=== PATIENT | female | born 1935 | race American Indian/Alaskan Native ===

== ENCOUNTER 2017-08-25 10:03 | Outpatient (CLI) | payer MEDICARE ==
--- NOTE | 2017-08-25 14:34 | Ultrasound Report ---
ULTRASOUND RENAL BILATERAL HISTORY: Kidney transplant status. TECHNIQUE: transabdominal ultrasound with color Doppler interrogation. FINDINGS: The [place] kidneys are not clearly identified and are presumably severely atrophic. A renal transplant is visualized in the left side of the pelvis which measures 12.1 x 6.5 x 5.4 cm. The transplant kidney appears normal size, contour and echotexture. There is minimal urinary stasis in the right renal pelvis but no evidence for hydronephrosis. No cystic disease, mass or perinephric fluid collection. The bladder is partially empty but unremarkable. IMPRESSION: Unremarkable appearance of the left pelvic transplant kidney.
--- NOTE | 2017-08-29 12:25 | PET Report ---
PET/CT:08/25/17 10:03:00 CLINICAL: Breast cancer restaging. RADIOPHARMACEUTICAL: 14.55mCi F18-FDG. COMPARISON: None. TECHNIQUE- Following intravenous injection of F-18 FDG and an approximately 60 minute uptake period, CT and PET images from the mid skull to the upper thighs were acquired with the patient in the fasted state. No contrast was administered. The CT protocol used for this PET CT study is designed for attenuation correction and anatomic localization of PET abnormalities. This roofing contractor CT is not desired to produce and cannot replace, [id number] diagnostic CT scans with specific imaging protocols for different body parts and indications. Plasma glucose at the time of this test: 99g/dl. The standardized uptake values (SUV) are normalized to patient body weight and indicate the highest activity concentration (SUV max) in a given disease site. FINDINGS: Brain--Physiologic FDG uptake in the visualized regions of the brain. Neck--Physiologic FDG uptake in mucosal structures.. Chest--Physiologic FDG uptake in mediastinal blood pool and myocardium. Lungs--No abnormal uptake. No pulmonary nodule or mass. Pleura/pericardium--No abnormal uptake. Thoracic nodes--No abnormal uptake. Hepatobiliary--No abnormal uptake. Liver background SUV mean, as a reference for comparing FDG studies, is 3.1 . No liver mass. Status post cholecystectomy. Spleen--No abnormal uptake. Pancreas--No abnormal uptake. Adrenal Glands--No abnormal uptake. Kidneys/Ureters/Bladder--No abnormal uptake. A normal appearing transplant kidney in the left pelvis and an atrophic left [place] kidney. No [place] right kidney is identified. Abdominopelvic Nodes--No abnormal uptake. Bowel/Peritoneum/Mesentery--No abnormal uptake. Pelvic organs--No abnormal uptake. Bones/Soft Tissues--Focal FDG uptake in the subcutaneous soft tissues of the medial distal left thigh with SUV 7.5. No soft tissue mass or skin lesion is identified on CT. Other findings: Status post right mastectomy. IMPRESSION- 1. A single focus of abnormal FDG uptake in the subcutaneous soft tissues of the left medial distal left thigh. In the absence of a visible soft tissue mass or skin lesion, I suspect this is benign uptake that is possibly related to a subcutaneous inflammatory lesion that is not visible on CT. Recommend clinical correlation and followup with CTPET in six months if no other explanation is identified for this activity. 2. No evidence of pulmonary, hepatic, gaby or skeletal metastasis. 3. Left transplant kidney.
== END 2017-08-25 10:04 | disposition home or self-care (01) ==
LOC: US 10:03
PROVIDERS: ATTEND Internal Medicine Hematology & Oncology
DX: C50.911 Malignant neoplasm of unspecified site of right female breast (principal); R63.4 Abnormal weight loss; N19 Unspecified kidney failure; Z94.0 Kidney transplant status; Z90.49 Acquired absence of other specified parts of digestive tract
CPT/HCPCS: 76770; 78815; 82962; A9552

== ENCOUNTER 2018-10-30 09:43 | Emergency (ER) | payer MEDICARE ==
[2018-10-30] MEDS ORDERED: ASPIRIN PO ONE (11:06)
[2018-10-30 11:28] LABS: Basophils # (Auto) 0.1 K/mm3 (0.0-0.1); Basophils % (Auto) 1.1 % (0.0-1.8); Eosinophils # (Auto) 0.1 K/mm3 (0.0-0.4); Eosinophils % (Auto) 1.9 % (0.0-4.3); Hematocrit 36.9 % (30.3-42.9); Hemoglobin 12.7 gm/dl (10.1-14.3); Lymphocytes # (Auto) 1.1 K/mm3 (1.2-5.4); Lymphocytes % (Auto) 23.9 % (13.4-35.0); Mean Corpuscular HGB Conc 35 % (30-34); Mean Corpuscular Volume 90 fl (79-97); Monocytes # (Auto) 0.5 K/mm3 (0.0-0.8); Monocytes % (Auto) 10.4 % (0.0-7.3); Platelet Count 256 K/mm3 (140-440); Red Cell Distribution Width 13.4 % (13.2-15.2)
[2018-10-30 11:46] LABS: BUN/Creatinine Ratio 25; Blood Urea Nitrogen 20 mg/dL (7-17); Calcium 9.7 mg/dL (8.4-10.2); Hemolysis Index 19
[2018-10-30] MEDS ORDERED: CARAFATE PO ONE (13:00)
[2018-10-30] MEDS ORDERED: PROTONIX IV ONE (13:00)
[2018-10-30] MEDS ORDERED: LIDOCAINE VISCOUS 2% PO ONE (13:01)
--- NOTE | 2018-10-30 13:21 | Emergency Department Report ---
ED General Adult HPI - General Chief complaint: Chest Pain Stated complaint: FATIQUE Time Seen by Provider: 10/30/18 12:31 Source: patient Mode of arrival: Ambulatory Limitations: No Limitations - History of Present Illness Initial comments: Patient presents to the emergency department with a chief complaint of upper abdominal pain that radiates into both of her shoulder blades. Patient states this pain has been present for the last couple of months and has seen multiple doctors for these symptoms. Patient states she is here today to find out what's wrong. Patient denies any chest pain, shortness breath, or headache. -: unknown Location: abdomen Radiation: back Severity scale (0 -10): 7 Quality: sharp Consistency: intermittent Improves with: none Worsens with: none Associated Symptoms: denies other symptoms Treatments Prior to Arrival: none - Related Data Previous Rx's Medication Instructions Recorded Last Taken Type Acetaminophen/Codeine [Tylenol 1 tab PO QHS PRN #10 tab 12/03/16 Unknown Rx /Codeine # 3 tab] predniSONE [Deltasone] 10 mg PO QDAY #5 tab 10/03/17 Unknown Rx traMADol [Ultram] 50 mg PO Q6HR PRN #20 tablet 01/27/18 Unknown Rx ALBUTEROL Inhaler (OR & NICU) 2 puff IH QID PRN #1 inhalation 03/15/18 Unknown Rx [ProAir HFA Inhaler] Azithromycin [Zithromax Z-JAYLEEN] 250 mg PO DAILY #6 tablet 03/15/18 Unknown Rx Sulfamethoxazole/Trimethoprim 1 each PO BID #14 tablet 03/15/18 Unknown Rx [Bactrim DS TAB] Magnesium Citrate [Citrate of 300 ml PO NOW #1 bottle 10/30/18 Unknown Rx Magnesia] cephALEXin [Keflex] 500 mg PO Q6HR #28 capsule 10/30/18 Unknown Rx Allergies Allergy/AdvReac Type Severity Reaction Status Date / Time azithromycin Allergy Anaphylaxis Verified 03/15/18 20:21 contr Allergy Unknown Uncoded 01/27/18 11:58 contrast dye AdvReac Unknown Uncoded 01/27/18 11:58 ED Review of Systems ROS: Stated complaint: FATIQUE Other details as noted in HPI Comment: All other systems reviewed and negative Constitutional: denies: chills, fever Eyes: denies: eye pain, eye discharge, vision change ENT: denies: ear pain, throat pain Respiratory: denies: cough, shortness of breath, wheezing Cardiovascular: denies: chest pain, palpitations Endocrine: no symptoms reported Gastrointestinal: denies: abdominal pain, nausea, diarrhea Genitourinary: denies: urgency, dysuria, discharge Musculoskeletal: denies: back pain, joint swelling, arthralgia Skin: denies: rash, lesions Neurological: denies: headache, weakness, paresthesias Psychiatric: denies: anxiety, depression Hematological/Lymphatic: denies: easy bleeding, easy bruising ED Past Medical Hx - Past Medical History Hx Hypertension: Yes Additional medical history: Aneurysm - Surgical History Hx Coronary Stent: Yes Hx Cholecystectomy: Yes Hx Appendectomy: Yes Additional Surgical History: R masectomy, L. kidney transplant, L shoulder - Social History Smoking Status: Never Smoker Substance Use Type: None - Medications Home Medications: Home Medications Medication Instructions Recorded Confirmed Last Taken Type Acetaminophen/Codeine [Tylenol 1 tab PO QHS PRN #10 tab 12/03/16 Unknown Rx /Codeine # 3 tab] predniSONE [Deltasone] 10 mg PO QDAY #5 tab 10/03/17 Unknown Rx traMADol [Ultram] 50 mg PO Q6HR PRN #20 tablet 01/27/18 Unknown Rx ALBUTEROL Inhaler (OR & NICU) 2 puff IH QID PRN #1 inhalation 03/15/18 Unknown Rx [ProAir HFA Inhaler] Azithromycin [Zithromax Z-JAYLEEN] 250 mg PO DAILY #6 tablet 03/15/18 Unknown Rx Sulfamethoxazole/Trimethoprim 1 each PO BID #14 tablet 03/15/18 Unknown Rx [Bactrim DS TAB] Magnesium Citrate [Citrate of 300 ml PO NOW #1 bottle 10/30/18 Unknown Rx Magnesia] cephALEXin [Keflex] 500 mg PO Q6HR #28 capsule 10/30/18 Unknown Rx ED Physical Exam - General Limitations: No Limitations General appearance: alert, in no apparent distress - Head Head exam: Present: atraumatic, normocephalic - Eye Eye exam: Present: normal appearance, PERRL, EOMI - ENT ENT exam: Present: mucous membranes moist - Neck Neck exam: Present: normal inspection - Respiratory Respiratory exam: Present: normal lung sounds bilaterally. Absent: respiratory distress, wheezes, rales - Cardiovascular Cardiovascular Exam: Present: regular rate, normal rhythm. Absent: systolic murmur, diastolic murmur, rubs, gallop - GI/Abdominal GI/Abdominal exam: Present: soft, tenderness (epigastric tenderness on palpation), normal bowel sounds. Absent: distended - Extremities Exam Extremities exam: Present: normal inspection - Back Exam Back exam: Present: normal inspection - Neurological Exam Neurological exam: Present: alert, oriented X3, CN II-XII intact. Absent: motor sensory deficit - Psychiatric Psychiatric exam: Present: normal affect, normal mood - Skin Skin exam: Present: warm, dry, intact, normal color. Absent: rash ED Course Vital Signs 10/30/18 10/30/18 10/30/18 10:09 12:20 12:31 Temperature 97.8 F Pulse Rate 72 70 59 L Respiratory 18 10 L 12 Rate Blood Pressure 142/73 144/69 O2 Sat by Pulse 100 100 Oximetry 10/30/18 10/30/18 10/30/18 12:45 13:01 13:15 Temperature Pulse Rate 71 65 61 Respiratory 13 16 11 L Rate Blood Pressure 144/69 144/76 144/76 O2 Sat by Pulse 100 99 98 Oximetry 10/30/18 10/30/18 10/30/18 13:39 13:45 14:01 Temperature Pulse Rate Respiratory Rate Blood Pressure 149/67 149/67 148/64 O2 Sat by Pulse 99 99 99 Oximetry ED Medical Decision Making - Lab Data Result diagrams: 10/30/18 11:08 10/30/18 11:08 Lab Results 10/30/18 10/30/18 10/30/18 Range/Units 11:08 11:08 13:00 WBC 4.7 (4.5-11.0) K/mm3 RBC 4.10 (3.65-5.03) M/mm3 Hgb 12.7 (10.1-14.3) gm/dl Hct 36.9 (30.3-42.9) % MCV 90 (79-97) fl MCH 31 (28-32) pg MCHC 35 H (30-34) % RDW 13.4 (13.2-15.2) % Plt Count 256 (140-440) K/mm3 Lymph % (Auto) 23.9 (13.4-35.0) % Humphreys % (Auto) 10.4 H (0.0-7.3) % Eos % (Auto) 1.9 (0.0-4.3) % Baso % (Auto) 1.1 (0.0-1.8) % Lymph # 1.1 L (1.2-5.4) K/mm3 Humphreys # 0.5 (0.0-0.8) K/mm3 Eos # 0.1 (0.0-0.4) K/mm3 Baso # 0.1 (0.0-0.1) K/mm3 Seg Neutrophils % 62.7 (40.0-70.0) % Seg Neutrophils # 3.0 (1.8-7.7) K/mm3 Sodium 139 (137-145) mmol/L Potassium 3.7 (3.6-5.0) mmol/L Chloride 100.5 (98-107) mmol/L Carbon Dioxide 24 (22-30) mmol/L Anion Gap 18 mmol/L BUN 20 H (7-17) mg/dL Creatinine 0.8 (0.7-1.2) mg/dL Estimated GFR > 60 ml/min BUN/Creatinine Ratio 25 % Glucose 99 (65-100) mg/dL Calcium 9.7 (8.4-10.2) mg/dL Total Bilirubin 4.40 H (0.1-1.2) mg/dL Direct Bilirubin < 0.2 (0-0.2) mg/dL AST 29 (5-40) units/L ALT 9 (7-56) units/L Alkaline Phosphatase 67 (35-129) units/L Troponin T < 0.010 < 0.010 (0.00-0.029) ng/mL Total Protein 7.3 (6.3-8.2) g/dL Albumin 4.5 (3.9-5) g/dL Albumin/Globulin Ratio 1.6 % Lipase 28 (13-60) units/L Urine Color (Yellow) Urine Turbidity (Clear) Urine pH (5.0-7.0) Ur Specific [place] (1.003-1.030) Urine Protein (Negative) mg/dL Urine Glucose (UA) (Negative) mg/dL Urine Ketones (Negative) mg/dL Urine Blood (Negative) Urine Nitrite (Negative) Urine Bilirubin (Negative) Urine Urobilinogen (<2.0) mg/dL Ur Leukocyte Esterase (Negative) Urine WBC (Auto) (0.0-6.0) /HPF Urine RBC (Auto) (0.0-6.0) /HPF U Epithel Cells (Auto) (0-13.0) /HPF Urine Bacteria (Auto) (Negative) /HPF Urine Mucus /HPF 10/30/18 10/30/18 Range/Units 14:36 14:57 WBC (4.5-11.0) K/mm3 RBC (3.65-5.03) M/mm3 Hgb (10.1-14.3) gm/dl Hct (30.3-42.9) % MCV (79-97) fl MCH (28-32) pg MCHC (30-34) % RDW (13.2-15.2) % Plt Count (140-440) K/mm3 Lymph % (Auto) (13.4-35.0) % Humphreys % (Auto) (0.0-7.3) % Eos % (Auto) (0.0-4.3) % Baso % (Auto) (0.0-1.8) % Lymph # (1.2-5.4) K/mm3 [place]reys # (0.0-0.8) K/mm3 Eos # (0.0-0.4) K/mm3 Baso # (0.0-0.1) K/mm3 Seg Neutrophils % (40.0-70.0) % Seg Neutrophils # (1.8-7.7) K/mm3 Sodium (137-145) mmol/L Potassium (3.6-5.0) mmol/L Chloride (98-107) mmol/L Carbon Dioxide (22-30) mmol/L Anion Gap mmol/L BUN (7-17) mg/dL Creatinine (0.7-1.2) mg/dL Estimated GFR ml/min BUN/Creatinine Ratio % Glucose (65-100) mg/dL Calcium (8.4-10.2) mg/dL Total Bilirubin (0.1-1.2) mg/dL Direct Bilirubin (0-0.2) mg/dL AST (5-40) units/L ALT (7-56) units/L Alkaline Phosphatase (35-129) units/L Troponin T < 0.010 (0.00-0.029) ng/mL Total Protein (6.3-8.2) g/dL Albumin (3.9-5) g/dL Albumin/Globulin Ratio % Lipase (13-60) units/L Urine Color Yellow (Yellow) Urine Turbidity Clear (Clear) Urine pH 6.0 (5.0-7.0) Ur Specific [place] 1.011 (1.003-1.030) Urine Protein <15 mg/dl (Negative) mg/dL Urine Glucose (UA) Neg (Negative) mg/dL Urine Ketones Neg (Negative) mg/dL Urine Blood Sm (Negative) Urine Nitrite Neg (Negative) Urine Bilirubin Neg (Negative) Urine Urobilinogen < 2.0 (<2.0) mg/dL Ur Leukocyte Esterase Lg (Negative) Urine WBC (Auto) 3.0 (0.0-6.0) /HPF Urine RBC (Auto) 3.0 (0.0-6.0) /HPF U Epithel Cells (Auto) 1.0 (0-13.0) /HPF Urine Bacteria (Auto) 1+ (Negative) /HPF Urine Mucus Few /HPF - EKG Data -: EKG Interpreted by Ia EKG shows normal: sinus rhythm Rate: normal - Radiology Data Radiology results: report reviewed - Medical Decision Making Discussed results with patient Critical care attestation.: If time is entered above; I have spent that time in minutes in the direct care of this critically ill patient, excluding procedure time. ED Disposition Clinical Impression: Abdominal pain, UTI (urinary tract infection) Disposition: TO HOME OR SELFCARE Is pt being admited?: No Does the pt Need Aspirin: No Condition: Stable Instructions: Abdominal Pain (ED), Urinary Tract Infection in Women (ED), Constipation (ED) Additional Instructions: return if worse Prescriptions: Magnesium Citrate [Citrate of Magnesia] 300 ml PO NOW #1 bottle cephALEXin [Keflex] 500 mg PO Q6HR #28 capsule Referrals: PRIMARY CARE, [Referring] - 3-5 Days Time of Disposition: 15:52
--- NOTE | 2018-10-30 13:24 | XRay Report ---
CHEST 1 VIEW INDICATION / CLINICAL INFORMATION: Chest Pain. COMPARISON: 03/15/2018 FINDINGS: SUPPORT DEVICES: None. HEART / MEDIASTINUM: The thoracic aorta is tortuous. LUNGS / PLEURA: No significant pulmonary or pleural abnormality.. No pneumothorax. ADDITIONAL FINDINGS: No significant additional findings. IMPRESSION: 1. No acute findings. Signer Name: Branden Piña MD Signed: 10/30/2018 1:20 PM Workstation Name: [id number]
[2018-10-30 14:02] LABS: Alanine Aminotransferase 9 units/L (7-56); Albumin 4.5 g/dL (3.9-5)
[2018-10-30 14:03] LABS: Bilirubin,Direct < 0.2 mg/dL (0-0.2)
[2018-10-30 15:20] LABS: Bacteria,Urine 1+ /HPF (Negative); Bilirubin,Urine NEG (Negative); Blood,Urine SM (Negative); Color,Urine Yellow (Yellow); Mucus,Urine FEW /HPF; Protein,Urine <15 mg/dL mg/dL (Negative); Urobilinogen,Urine < 2.0 mg/dL (<2.0)
--- NOTE | 2018-10-30 15:38 | Cat Scan Report ---
CT ABDOMEN AND PELVIS WITHOUT CONTRAST HISTORY: abdominal pain COMPARISON: None. TECHNIQUE: Axial CT images were obtained through the abdomen and pelvis without IV contrast. Sagittal and coronal reformatted images. All CT scans at this location are performed using CT dose reduction for ALARA by means of automated exposure control. FINDINGS: CT ABDOMEN: Lung Bases: Mild cardiomegaly and trace pericardial effusion is identified. 1 cm calcified granuloma at the left lung base is noted. Liver: No significant abnormality. Biliary: Cystectomy. No biliary dilatation. Spleen: The spleen is normal size. Multiple calcified splenic granulomas are noted. Pancreas: No significant abnormality. Adrenals: No significant abnormality. Kidneys: The left kidney is atrophic measuring 6 cm in length and contains scattered small cysts. The right kidney is not confidently identified. This could represent surgical resection or severe atroph y or agenesis. There appears to be a renal transplant in the left iliac fossa which is unremarkable. No hydronephrosis or perinephric fluid. Lymphatics: No lymphadenopathy. Vasculature: Moderate diffuse arterial calcifications are identified. No aneurysm. Bowel/Peritoneum: There is moderate stool in the colon. No evidence for bowel obstruction or focal in flammation. There are a few scattered diverticula in the ascending colon. The appendix is not confide ntly identified CT PELVIS: : No significant abnormality. Osseous Structures: No significant abnormality. Additional Findings: None IMPRESSION: No acute inflammatory process is identified. Mild cardiomegaly and trace pericardial effusion. Atrophic kidneys as described. The left renal transplant appears within normal limits. Constipation. Chronic granulomatous disease. Signer Name: Steven Johnson Jr, MD Signed: 10/30/2018 3:34 PM Workstation Name: [id number]
[2018-10-30 16:38] VITALS: BP 140/65
== END 2018-10-30 16:18 | disposition home or self-care (01) ==
LOC: ED 09:43
DX: N39.0 Urinary tract infection, site not specified (principal); I10 Essential (primary) hypertension; Z88.1 Allergy status to other antibiotic agents; Z91.041 Radiographic dye allergy status; Z79.899 Other long term (current) drug therapy; Z90.49 Acquired absence of other specified parts of digestive tract; Z90.11 Acquired absence of right breast and nipple
CPT/HCPCS: 36415; 71045; 74176; 80048; 80076; 81001; 83690; 84484; 85025; 93005; 93010; 96374; 99285; C9113

== ENCOUNTER 2020-07-14 09:55 | Emergency (ER) | payer MEDICARE ==
[2020-07-14 10:49] VITALS: BP 160/67
--- NOTE | 2020-07-14 11:37 | Cat Scan Report ---
Exam: CT cervical spine History: cerv spine pain; Technique: Contiguous thin cut axial images obtained through the cervical spine. Sagittal and temple[place] l reconstructions performed by the technologist. All CT scans at this location are performed using CT dose reduction for ALARA by means of automated exposure control. Findings: No priors. There is no evidence of fracture or traumatic subluxation. Vertebral bodies are normal in height and alignment. Hypertrophy of the transverse ligament; foramen magnum normal; degenerative changes in the anterior a tlantoaxial joint Intervertebral disc spaces: C2-C3: Facet joint hypertrophic changes on the right side; right foraminal stenoses C3-C4: Marked facet joint hypertrophic changes on the left side; disc protrusion extending bilaterall y more towards the right side; foraminal stenoses more on the right side C4-C5: Loss of disc height; anterior bridging osteophyte; trace anterolisthesis; disc osteophyte comp sukhwinder foraminal stenoses C5-C6: Anterior bridging osteophyte; neuroforamina are normal C6-C7: Nonlateralizing disc protrusion; neuroforamina are normal C7-T1: Neuroforamina are normal Vertebral joint degenerative changes at C4-C5, C5-C6 and C6-C7 levels bilaterally Surrounding soft tissues are grossly normal. Impression: Spondylotic changes at C4-C5 and to a lesser degree at C5-C6 disc level Signer Name: Tommy Duron MD Signed: 07/14/2020 11:33 AM Workstation Name: [id number]
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
== END 2020-07-14 13:59 | disposition home or self-care (01) ==
LOC: ED 09:55
DX: M47.812 Spondylosis without myelopathy or radiculopathy, cervical region (principal); I10 Essential (primary) hypertension; Z79.899 Other long term (current) drug therapy; Z90.49 Acquired absence of other specified parts of digestive tract; Z98.890 Other specified postprocedural states; Z88.8 Allergy status to other drugs, medicaments and biological substances
CPT/HCPCS: 72125

== ENCOUNTER 2021-07-16 07:49 | Emergency (ER) | payer MEDICARE ==
[2021-07-16 08:23] VITALS: BP 164/99
--- NOTE | 2021-07-16 11:51 | Emergency Department Report ---
- General Chief Complaint: Upper Respiratory Infection Stated Complaint: BRONCHITIS Source: EMS Mode of arrival: Stretcher Limitations: No Limitations - History of Present Illness Initial Comments: 85-year-old female presents to the ED requesting antibiotic. Patient states that she has bronchitis x1 month . Patient has a history of kidney transplant and double mastectomy from breast cancer. She denies any chest pain ,shortness of breath, abdominal pain, fever or chills at present time. Patient is alert and oriented x3. No acute distress noted no ill appearance noted. She denies any pain at present time. Severity scale (0 -10): 0 Associated Symptoms: denies other symptoms - Related Data Previous Rx's Medication Instructions Recorded Last Taken Type Acetaminophen/Codeine [Tylenol 1 tab PO QHS PRN #10 tab 12/03/16 Unknown Rx /Codeine # 3 tab] predniSONE 10 mg PO QDAY #5 tab 10/03/17 Unknown Rx traMADoL [Ultram] 50 mg PO Q6HR PRN #20 tablet 01/27/18 Unknown Rx Albuterol Mdi (or & Nicu Only) 2 puff IH QID PRN #1 inhalation 03/15/18 Unknown Rx [ProAir HFA Inhaler] Azithromycin [Zithromax Z-JAYLEEN] 250 mg PO DAILY #6 tablet 03/15/18 Unknown Rx Sulfamethoxazole/Trimethoprim 1 each PO BID #14 tablet 03/15/18 Unknown Rx [Bactrim DS TAB] Magnesium Citrate [Citrate of 300 ml PO NOW #1 bottle 10/30/18 Unknown Rx Magnesia] cephALEXin [Keflex] 500 mg PO Q6HR #28 capsule 10/30/18 Unknown Rx Diclofenac 1% [Diclofenac 1% 1 applicatio TP TID #1 gel..gram. 07/14/20 Unknown Rx topical gel] DOXYCYCLINE Hyclate [Vibramycin 100 mg PO Q12HR 3 Days #6 capsule 07/16/21 Unknown Rx CAP] Allergies Allergy/AdvReac Type Severity Reaction Status Date / Time albuterol [From ProAir HFA] Allergy Unknown Verified 07/14/20 10:44 atenolol [From Tenormin] Allergy Unknown Verified 07/14/20 10:44 azithromycin Allergy Anaphylaxis Verified 03/15/18 20:21 benzonatate Allergy Unknown Verified 07/14/20 10:44 cefdinir [From Omnicef] Allergy Unknown Verified 07/14/20 10:44 ferrous fumarate Allergy Unknown Verified 07/14/20 10:44 [From 1 + Iron] folic acid Allergy Unknown Verified 07/14/20 10:44 [From 1 + Iron] Influenza Virus Vaccines Allergy Unknown Verified 07/14/20 10:44 levofloxacin [From Levaquin] Allergy Unknown Verified 07/14/20 10:44 medroxyprogesterone Allergy Unknown Verified 07/14/20 10:44 moxifloxacin [From Avelox] Allergy Unknown Verified 07/14/20 10:44 mycophenolate mofetil Allergy Unknown Verified 07/14/20 10:44 nystatin Allergy Unknown Verified 07/14/20 10:44 pregabalin [From Lyrica] Allergy Unknown Verified 07/14/20 10:44 vit,tx Allergy Unknown Verified 07/14/20 10:44 calc,iron,folic acd(less thn 1 mg) [From 1 + Iron] vitamins with Allergy Unknown Verified 07/14/20 10:44 calcium [From 1 + Iron] ranitidine Allergy Unknown Verified 07/14/20 10:44 sulfamethoxazole Allergy Unknown Verified 07/14/20 10:44 [From Bactrim] tacrolimus Allergy Unknown Verified 07/14/20 10:44 trimethoprim [From Bactrim] Allergy Unknown Verified 07/14/20 10:44 contrast dye AdvReac Unknown Uncoded 01/27/18 11:58 ED Review of Systems ROS: Stated complaint: BRONCHITIS Other details as noted in HPI Constitutional: denies: chills, fever Eyes: denies: eye pain, eye discharge, vision change ENT: denies: ear pain, throat pain Respiratory: denies: cough, shortness of breath, wheezing Cardiovascular: denies: chest pain, palpitations Endocrine: no symptoms reported Gastrointestinal: denies: abdominal pain, nausea, diarrhea Genitourinary: denies: urgency, dysuria, discharge Musculoskeletal: denies: back pain, joint swelling, arthralgia Skin: denies: rash, lesions Neurological: denies: headache, weakness, paresthesias Psychiatric: denies: anxiety, depression Hematological/Lymphatic: denies: easy bleeding, easy bruising ED Past Medical Hx - Past Medical History Hx Hypertension: Yes Additional medical history: Aneurysm. Chronic neck pain. Chronic right shoulder pain. Chronic lower back pain - Surgical History Hx Coronary Stent: Yes Hx Cholecystectomy: Yes Hx Appendectomy: Yes Additional Surgical History: R masectomy, L. kidney transplant, L shoulder - Social History Smoking Status: Never Smoker Substance Use Type: None - Medications Home Medications: Home Medications Medication Instructions Recorded Confirmed Last Taken Type Acetaminophen/Codeine [Tylenol 1 tab PO QHS PRN #10 tab 12/03/16 Unknown Rx /Codeine # 3 tab] predniSONE 10 mg PO QDAY #5 tab 10/03/17 Unknown Rx traMADoL [Ultram] 50 mg PO Q6HR PRN #20 tablet 01/27/18 Unknown Rx Albuterol Mdi (or & Nicu Only) 2 puff IH QID PRN #1 inhalation 03/15/18 Unknown Rx [ProAir HFA Inhaler] Azithromycin [Zithromax Z-JAYLEEN] 250 mg PO DAILY #6 tablet 03/15/18 Unknown Rx Sulfamethoxazole/Trimethoprim 1 each PO BID #14 tablet 03/15/18 Unknown Rx [Bactrim DS TAB] Magnesium Citrate [Citrate of 300 ml PO NOW #1 bottle 10/30/18 Unknown Rx Magnesia] cephALEXin [Keflex] 500 mg PO Q6HR #28 capsule 10/30/18 Unknown Rx Diclofenac 1% [Diclofenac 1% 1 applicatio TP TID #1 gel..gram. 07/14/20 Unknown Rx topical gel] DOXYCYCLINE Hyclate [Vibramycin 100 mg PO Q12HR 3 Days #6 capsule 07/16/21 Unknown Rx CAP] ED Physical Exam - General Limitations: No Limitations General appearance: alert, in no apparent distress - Head Head exam: Present: atraumatic, normocephalic - Eye Eye exam: Present: normal appearance - ENT ENT exam: Present: mucous membranes moist - Neck Neck exam: Present: normal inspection - Respiratory Respiratory exam: Present: normal lung sounds bilaterally. Absent: respiratory distress - Cardiovascular Cardiovascular Exam: Present: regular rate, normal rhythm. Absent: systolic murmur, diastolic murmur, rubs, gallop - GI/Abdominal GI/Abdominal exam: Present: soft, normal bowel sounds - Extremities Exam Extremities exam: Present: normal inspection - Back Exam Back exam: Present: normal inspection - Neurological Exam Neurological exam: Present: alert, oriented X3 - Psychiatric Psychiatric exam: Present: normal affect, normal mood - Skin Skin exam: Present: warm, dry, intact, normal color. Absent: rash ED Course Vital Signs 07/16/21 07/16/21 07/16/21 08:20 11:48 12:49 Temperature 98.4 F Pulse Rate 101 H 66 66 Respiratory 18 16 Rate Blood Pressure 164/99 [Left] O2 Sat by Pulse 98 98 Oximetry ED Medical Decision Making - Radiology Data [facility] [address] [place] [address] XRay Report Signed Patient: CATHIE ARGUTEA MR#: [id number] 6 : 1935 Acct:[id number] Age/Sex: 85 / F ADM Date: 07/16/21 Loc: ED Attending Dr: Ordering Physician: ESTEBAN CALLEJAS Date of Service: 07/16/21 Procedure(s): XR chest routine 2V Accession Number(s): [id number] cc: ESTEBAN CALLEJAS Fluoro Time In Minutes: CHEST 2 VIEWS INDICATION / CLINICAL INFORMATION: cough. COMPARISON: 10/30/2018 FINDINGS: SUPPORT DEVICES: None. HEART / MEDIASTINUM: Heart size is at the upper limits of normal. The aorta is ectatic but well defined. LUNGS / PLEURA: No significant pulmonary or pleural abnormality. No pneumothorax. ADDITIONAL FINDINGS: No significant additional findings. IMPRESSION: 1. No acute findings. No significant change since 10/30/2018. Signer Name: Steven Johnson Jr, MD Signed: 07/16/2021 12:15 PM Workstation Name: [id number] Transcribed By: TTR Dictated By: STEVEN JOHNSON JR, MD Electronically Authenticated By: STEVEN JOHNSON JR, MD Signed Date/Time: 07/16/211214 DD/ 14 TD/TT: - Medical Decision Making 85-year-old female presents to the ED requesting antibiotic. Patient states that she has bronchitis x1 month . Patient has a history of kidney transplant and double mastectomy from breast cancer. She denies any chest pain ,shortness of breath, abdominal pain, fever or chills at present time. Patient is alert and oriented x3. No acute distress noted no ill appearance noted. She denies any pain at present time. Physical examination unremarkable. 2 view chest x-ray showed no abnormality no wheezing noted. Rechecked the patient is resting quietly quietly and comfortable and feeling better. I discussed the results of diagnostic study, my clinical impression and the plan for further treatment with the patient. Patient agrees with plan and discharge at this present time. All question addressed. I have given the patient instruction regarding a diagnosis ,expectation ,follow- up and return precaution. I explained to the patient that emergent condition may arise and to return to the ED for new worsen and any new persisting condition. I have explained the importance of following up with the primary care physician or referral physician listed below has instructed. The patient verbalized understanding of discharge instruction. Critical care attestation.: If time is entered above; I have spent that time in minutes in the direct care of this critically ill patient, excluding procedure time. ED Disposition Clinical Impression: URI (upper respiratory infection) Qualifiers: URI type: unspecified URI Qualified Code(s): J06.9 - Acute upper respiratory infection, unspecified Disposition: 01 HOME / SELF CARE / HOMELESS Is pt being admited?: No Does the pt Need Aspirin: No Condition: Stable Instructions: Upper Respiratory Infection, Adult, [id number] Additional Instructions: Take medication as prescribed Return to the ED for any worsening symptom Prescriptions: DOXYCYCLINE Hyclate [Vibramycin CAP] 100 mg PO Q12HR 3 Days #6 capsule Referrals: CHINTAN ISSA MD [Primary Care Provider] - 3-5 Days Forms: Work/School Release Form(ED) Time of Disposition: 12:38
--- NOTE | 2021-07-16 12:26 | XRay Report ---
CHEST 2 VIEWS INDICATION / CLINICAL INFORMATION: cough. COMPARISON: 10/30/2018 FINDINGS: SUPPORT DEVICES: None. HEART / MEDIASTINUM: Heart size is at the upper limits of normal. The aorta is ectatic but well defin ed. LUNGS / PLEURA: No significant pulmonary or pleural abnormality. No pneumothorax. ADDITIONAL FINDINGS: No significant additional findings. IMPRESSION: 1. No acute findings. No significant change since 10/30/2018. Signer Name: Steven Johnson Jr, MD Signed: 07/16/2021 12:15 PM Workstation Name: [id number]
== END 2021-07-16 12:49 | disposition home or self-care (01) ==
LOC: ED 07:49
DX: J06.9 Acute upper respiratory infection, unspecified (principal); I10 Essential (primary) hypertension; Z98.890 Other specified postprocedural states; Z88.6 Allergy status to analgesic agent; Z88.1 Allergy status to other antibiotic agents; Z88.3 Allergy status to other anti-infective agents; Z88.8 Allergy status to other drugs, medicaments and biological substances; Z91.09 Other allergy status, other than to drugs and biological substances
CPT/HCPCS: 71046; 99283

== ENCOUNTER 2021-08-13 07:36 | Outpatient (CLI) | payer MEDICARE ==
[2021-08-13 08:29] LABS: Bacteria,Urine 1+ /HPF (Negative); Mucus,Urine FEW /HPF
[2021-08-13 08:31] LABS: Basophils % (Auto) 0.9 % (0.0-1.8); Eosinophils # (Auto) 0.1 K/mm3 (0.0-0.4); Hematocrit 35.1 % (30.3-42.9); Hemoglobin 12.5 gm/dl (10.1-14.3); Lymphocytes # (Auto) 1.2 K/mm3 (1.2-5.4); Lymphocytes % (Auto) 38.8 % (13.4-35.0); Mean Corpuscular HGB Conc 36 % (30-34); Mean Corpuscular Volume 89 fl (79-97); Monocytes # (Auto) 0.3 K/mm3 (0.0-0.8); Monocytes % (Auto) 9.1 % (0.0-7.3); Platelet Count 219 K/mm3 (140-440); Red Blood Count 3.93 M/mm3 (3.65-5.03)
[2021-08-13 08:46] LABS: Bilirubin,Urine Negative (Negative); Blood,Urine Negative (Negative); Color,Urine Yellow (Yellow); Protein,Urine <15 mg/dL mg/dL (Negative)
[2021-08-13 09:15] LABS: Alanine Aminotransferase 12 units/L (7-56); Blood Urea Nitrogen 15 mg/dL (7-17); Calcium 10.6 mg/dL (8.4-10.2); Hemolysis Index 2; Uric Acid 4.8 mg/dL (3.5-7.6)
[2021-08-13 09:16] LABS: BUN/Creatinine Ratio 21
[2021-08-13 13:55] LABS: Creatinine,Urine 41.6 mg/dL (0.1-20.0); Protein/Creatinine Ratio,Urine 0.26
== END 2021-08-13 07:37 | disposition home or self-care (01) ==
LOC: LAB 07:36
PROVIDERS: ATTEND Internal Medicine Nephrology
DX: N18.9 Chronic kidney disease, unspecified (principal); N25.89 Other disorders resulting from impaired renal tubular function; Z94.83 Pancreas transplant status; Z94.0 Kidney transplant status; Z79.899 Other long term (current) drug therapy
CPT/HCPCS: 36415; 80053; 80197; 81001; 82570; 83735; 84100; 84156; 84550; 85025

== ENCOUNTER 2021-09-21 08:42 | Outpatient (CLI) | payer MEDICARE ==
[2021-09-21 12:12] LABS: Basophils % (Auto) 0.5 % (0.0-1.8); Eosinophils # (Auto) 0.1 K/mm3 (0.0-0.4); Eosinophils % (Auto) 1.1 % (0.0-4.3); Hematocrit 33.3 % (30.3-42.9); Hemoglobin 11.7 gm/dl (10.1-14.3); Lymphocytes # (Auto) 1.2 K/mm3 (1.2-5.4); Lymphocytes % (Auto) 23.1 % (13.4-35.0); Mean Corpuscular HGB Conc 35 % (30-34); Mean Corpuscular Volume 91 fl (79-97); Monocytes # (Auto) 0.4 K/mm3 (0.0-0.8); Monocytes % (Auto) 8.3 % (0.0-7.3); Platelet Count 238 K/mm3 (140-440); Red Blood Count 3.67 M/mm3 (3.65-5.03); Red Cell Distribution Width 13.6 % (13.2-15.2)
[2021-09-21 12:20] LABS: Bilirubin,Urine Negative (Negative); Blood,Urine Negative (Negative); Color,Urine Yellow (Yellow)
[2021-09-21 12:21] LABS: Urobilinogen,Urine < 2.0 mg/dL (<2.0)
[2021-09-21 12:25] LABS: Alanine Aminotransferase 9 units/L (7-56); Albumin 4.7 g/dL (3.9-5); Blood Urea Nitrogen 22 mg/dL (7-17); Calcium 9.8 mg/dL (8.4-10.2); Hemolysis Index 5; LDL Cholesterol,Direct 71 mg/dL (50-130)
[2021-09-21 12:43] LABS: BUN/Creatinine Ratio 37; Chol/HDL Ratio 1.51 %; HDL Cholesterol 125 mg/dL (40-59)
[2021-09-24 11:32] LABS: Vitamin D, 25-OH, D2 <4 ng/mL
== END 2021-09-21 08:43 | disposition home or self-care (01) ==
LOC: LABHHL 08:42
PROVIDERS: ATTEND Internal Medicine
DX: C50.919 Malignant neoplasm of unspecified site of unspecified female breast (principal); N39.0 Urinary tract infection, site not specified; I10 Essential (primary) hypertension; E55.9 Vitamin D deficiency, unspecified; Z00.00 Encounter for general adult medical examination without abnormal findings; N39.498 Other specified urinary incontinence; R53.83 Other fatigue; Z94.0 Kidney transplant status; Z79.899 Other long term (current) drug therapy
CPT/HCPCS: 36415; 80053; 80061; 81001; 82306; 83036; 84443; 85025

== ENCOUNTER 2021-10-02 11:52 | Emergency (ER) | payer MEDICARE ==
[2021-10-02 12:50] VITALS: BP 149/61
== END 2021-10-02 15:35 | disposition left against medical advice (07) ==
LOC: ED 11:52
DX: Z00.00 Encounter for general adult medical examination without abnormal findings (principal); Z53.21 Procedure and treatment not carried out due to patient leaving prior to being seen by health care provider

== ENCOUNTER 2021-11-17 09:46 | Emergency (ER) | payer MEDICARE ==
--- NOTE | 2021-11-17 10:57 | XRay Report ---
CHEST 1 VIEW 11/17/2021 10:31 AM INDICATION / CLINICAL INFORMATION: Chest Pain. COMPARISON: 07/16/2021 FINDINGS: SUPPORT DEVICES: None. HEART / MEDIASTINUM: Stable mild cardiomegaly LUNGS / PLEURA: No significant pulmonary or pleural abnormality. No pneumothorax. ADDITIONAL FINDINGS: No significant additional findings. IMPRESSION: 1. Stable mild cardiomegaly. Lungs clear. No change since 07/16/2021. Signer Name: Steven Johnson Jr, MD Signed: 11/17/2021 10:53 AM Workstation Name: [id number]
[2021-11-17 11:23] LABS: Basophils % (Auto) 0.9 % (0.0-1.8); Eosinophils % (Auto) 0.9 % (0.0-4.3); Hemoglobin 12.9 gm/dl (10.1-14.3); Lymphocytes # (Auto) 1.3 K/mm3 (1.2-5.4); Lymphocytes % (Auto) 27.6 % (13.4-35.0); Mean Corpuscular HGB Conc 35 % (30-34); Mean Corpuscular Volume 90 fl (79-97); Monocytes # (Auto) 0.3 K/mm3 (0.0-0.8); Monocytes % (Auto) 7.1 % (0.0-7.3); Platelet Count 264 K/mm3 (140-440); Red Blood Count 4.11 M/mm3 (3.65-5.03); Red Cell Distribution Width 13.4 % (13.2-15.2)
--- NOTE | 2021-11-17 11:58 | Emergency Department Report ---
HPI - General Chief Complaint: Chest Pain PUI?: No Time Seen by Provider: 11/17/21 11:48 - HPI HPI: 86-year-old female presents with complaints of L axillary pain. Pt states that since having a left sided mastectomy in 2020, she has been having "off again off again" pain localized to her left axilla and sometimes her left lateral chest wall. She states that she has had pain that has been "off and on for months now" and it only worsens with touch and movement. She states that it began bothering her again last night but she currently has no pain. She denies any difficulty breathing or shortness of breath and has had no trauma to her axillary chest wall. No tingling or numbness in her arms or legs. No difficulty talking walking or word finding. No vision changes, no headaches. No recent procedures to her left upper extremity. Patient states she has a scheduled follow-up appointment tomorrow with her oncologist at [facility] but states "I just wanted to come in to make sure the cancer did not come back." Pain currently 0-10. ED Past Medical Hx - Past Medical History Previous Medical History?: Yes Hx Hypertension: Yes Additional medical history: Aneurysm. Chronic neck pain. Chronic right shoulder pain. Chronic lower back pain - Surgical History Hx Coronary Stent: Yes Hx Cholecystectomy: Yes Hx Appendectomy: Yes Additional Surgical History: R masectomy, L. kidney transplant, L shoulder - Social History Smoking Status: Never Smoker Substance Use Type: None - Medications Home Medications: Home Medications Medication Instructions Recorded Confirmed Last Taken Type Acetaminophen/Codeine [Tylenol 1 tab PO QHS PRN #10 tab 12/03/16 Unknown Rx /Codeine # 3 tab] predniSONE 10 mg PO QDAY #5 tab 10/03/17 Unknown Rx traMADoL [Ultram] 50 mg PO Q6HR PRN #20 tablet 01/27/18 Unknown Rx Albuterol Mdi (or & Nicu Only) 2 puff IH QID PRN #1 inhalation 03/15/18 Unknown Rx [ProAir HFA Inhaler] Azithromycin [Zithromax Z-JAYLEEN] 250 mg PO DAILY #6 tablet 03/15/18 Unknown Rx Sulfamethoxazole/Trimethoprim 1 each PO BID #14 tablet 03/15/18 Unknown Rx [Bactrim DS TAB] Magnesium Citrate [Citrate of 300 ml PO NOW #1 bottle 10/30/18 Unknown Rx Magnesia] cephALEXin [Keflex] 500 mg PO Q6HR #28 capsule 10/30/18 Unknown Rx Diclofenac 1% [Diclofenac 1% 1 applicatio TP TID #1 gel..gram. 07/14/20 Unknown Rx topical gel] DOXYCYCLINE Hyclate [Vibramycin 100 mg PO Q12HR 3 Days #6 capsule 07/16/21 Unknown Rx CAP] ED Review of Systems ROS: Stated complaint: CHEST PAIN Other details as noted in HPI All other review of systems negative Comment: All other systems reviewed and negative Physical Exam - Physical Exam Vital Signs: Vital Signs 11/17/21 11/17/21 09:50 10:54 Temperature 97.9 F 97.8 F Pulse Rate 78 66 Respiratory 18 16 Rate Blood Pressure 169/97 Blood Pressure 145/72 [Left] O2 Sat by Pulse 100 99 Oximetry General: Gen: pt is well appearing, no acute distress HEENT: Normocephalic atraumatic pupils equally round and reactive to light extraocular muscles intact sclera anicteric Neck: Full range of motion, no midline spinal tenderness palpation, no JVD, no carotid bruits, no nuchal rigidity CVS: S1-S2 regular rate and rhythm with no gallops rubs or murmurs, chest wall nontender; pt's breasts are surgically absent, surgical scars to chest wall are healed dry intact, no wound dehiscence no erythema no evidence of trauma no evidence infection Pulmonary: Clear to auscultation bilaterally, no wheezes rales or rhonchi Abdomen: Soft nondistended nontender no guarding or rebound tenderness, no palp able deformities or step-offs, normal active bowel sounds, no hepatosplenomegaly, no pulsatile masses : Deferred Extremities: No cyanosis no clubbing no edema, intact distal peripheral pulses, Integumentary: Skin normal, no petechia no purpura no abscess no lacerations no evidence of trauma no evidence of infection Neuro: Patient is awake alert and oriented to person place time situation, mentating well, cranial nerves II through XII intact, no focal neurodeficits, sensation grossly tact Psych: Calm cooperative, mood affect normal ED Course Vital Signs 11/17/21 11/17/21 09:50 10:54 Temperature 97.9 F 97.8 F Pulse Rate 78 66 Respiratory 18 16 Rate Blood Pressure 169/97 Blood Pressure 145/72 [Left] O2 Sat by Pulse 100 99 Oximetry ED Medical Decision Making - Lab Data Result diagrams: 11/17/21 10:44 11/17/21 10:44 - EKG Data -: EKG Interpreted by Me EKG shows normal: sinus rhythm Rate: normal - EKG Data When compared to previous EKG there are: previous EKG unavailable Interpretation: no acute changes 11/17/21 11:56 EKG interpreted by me: Ventricular rate 56 beats minute. Patient has NC interval which is prolonged at 234 ms. Remainder of intervals normal. No ST segment depressions or elevations. No T wave flattening or inversions. Patient has left ventricular hypertrophy. Mild T wave inversions in V5. No ectopic. No arrhythmia. Normal axis. - Radiology Data Radiology results: report reviewed - Medical Decision Making 86-year-old female presents for evaluation of left axilla pain and left lateral chest wall pain times several months which she states immediately been reoccurring since that she underwent a left mastectomy in 2020. Vital signs stable. EKG grossly unremarkable. Serum labs unremarkable. Chest x-ray and CT imaging demonstrated no acute pathology. The patient ambulates here with norm al steady gait. She denies any exertional chest pain shortness of breath difficulty breathing or palpitations. Her heart score is 3 (age score of 2; risk factors score 1). Patient was offered pain medication here but she repeatedly denies having any pain and declines to receive medication. No fu rther emergent work-up warranted. Patient stable for discharge to home. I reviewed the case with her daughter via telephone, per her request. She confirms the patient will see her oncologist for follow-up. Patient stable for discharge to home. Prior to discharge she was given strict verbal and written return precautions. Patient verbalized understanding agreement the plan of care peer Critical care attestation.: If time is entered above; I have spent that time in minutes in the direct care of this critically ill patient, excluding procedure time. ED Disposition Clinical Impression: Left axillary pain Disposition: HOME / SELF CARE / HOMELESS Is pt being admited?: No Does the pt Need Aspirin: No Condition: Stable Instructions: How to Use Cold Therapy, [id number], Pain Without a Known Cause Additional Instructions: Take over the counter tylenol for pain. See your oncologist for reassessment and further management of your pain. Return if you develop severe or worsening pain, vomiting , shortness of breath, difficulty breathing, or if any other new worrisome symptoms develop. Referrals: PRIMARY CARE,MD [Primary Care Provider] - 3-5 Days
[2021-11-17 12:01] LABS: Alanine Aminotransferase 11 units/L (7-56); Albumin 4.9 g/dL (3.9-5); Blood Urea Nitrogen 11 mg/dL (7-17); Calcium 10.1 mg/dL (8.4-10.2); Hemolysis Index 84
[2021-11-17 12:03] LABS: BUN/Creatinine Ratio 37
--- NOTE | 2021-11-17 14:10 | Cat Scan Report ---
CT CHEST WITHOUT CONTRAST INDICATION / CLINICAL INFORMATION: hx of breast ca, mastectomy, L lat chest wall pain. TECHNIQUE: Axial CT images were obtained through the chest without contrast. All CT scans at this [facility] ation are performed using CT dose reduction for ALARA by means of automated exposure control. COMPARISON: 03/15/2018 FINDINGS: HEART: Mild cardiomegaly. Trace to small pericardial effusion. CORONARY ARTERY CALCIFICATION: Present -- Severe. THORACIC AORTA: Moderate atherosclerotic calcification without acute abnormality. There is mild aneur ysmal dilatation of the ascending aorta up to 4.1 cm. MEDIASTINUM / YVAN: No significant abnormality. PLEURA: No pleural effusion. No pneumothorax. LUNGS: No acute air space or interstitial disease. No suspicious pulmonary nodule or mass. Calcified granuloma in the posterior left lower lobe is noted. ADDITIONAL FINDINGS: None. UPPER ABDOMEN: Nothing acute. The visualized left kidney appears atrophic. SKELETAL SYSTEM: No suspicious bony lesion or fracture is detected. Left lateral thoracic wall is unr emarkable. IMPRESSION: 1. No acute process noted. No clear explanation for left lateral chest wall pain. 2. Mild cardiomegaly and trace pericardial effusion. 3. Mild dilatation of the ascending aorta up to 4.1 cm. 4. Lungs clear. Signer Name: Steven Johnson Jr, MD Signed: 11/17/2021 2:06 PM Workstation Name: [id number]
[2021-11-17 16:54] VITALS: BP 164/87
--- NOTE | 2021-11-20 12:12 | Electrocardiograph Report ---
[facility] Test Date: 2021-11-17 Test Time: 10:46:39 Pat Name: CATHIE ARGUETA Department: Room: Gender: F Roller Man: mitchell : 1935 Requested By: DIONNA GUERRERO Order Number: [id number] Reading MD: Richie Schultz Measurements Intervals [place] Rate: 56 P: 0 SD: 234 QRS: 35 QRSD: 90 T: -87 QT: 380 QTc: 366 Interpretive Statements Sinus bradycardia Prolonged SD interval LVH with secondary repolarization abnormality No previous ECG available for comparison Electronically Signed On 11-20-2021 9:12:44 PDT by Richie Schultz
== END 2021-11-17 16:55 | disposition home or self-care (01) ==
LOC: ED 09:46
DX: M79.622 Pain in left upper arm (principal); R07.89 Other chest pain; I10 Essential (primary) hypertension; G89.29 Other chronic pain; Z90.49 Acquired absence of other specified parts of digestive tract; Z79.899 Other long term (current) drug therapy; Z88.8 Allergy status to other drugs, medicaments and biological substances; Z88.1 Allergy status to other antibiotic agents
CPT/HCPCS: 71045; 71250; 80053; 84484; 85025; 93005; 99285